=== PATIENT | female | born 2000 | race Caucasian/White ===

== ENCOUNTER 2023-01-08 07:53 | Emergency (ER) | payer MEDICAID ==
[~2023-01-08] VITALS: Ht 160 cm; Wt 63.5 kg
[2023-01-08 07:55] VITALS: BP 126/61; PULSE 101; RESP 20; TEMP 98.4; O2SAT 97
[2023-01-08 08:39] VITALS: BP 126/61; PULSE 101; RESP 20; TEMP 98.4; O2SAT 97
== END 2023-01-08 08:39 ==
LOC: MED 07:53
DX: T14.8XXA Other injury of unspecified body region, initial encounter (principal); Z02.89 Encounter for other administrative examinations; Z88.6 Allergy status to analgesic agent; V89.2XXA Person injured in unspecified motor-vehicle accident, traffic, initial encounter; Y93.89 Activity, other specified; Y92.410 Unspecified street and highway as the place of occurrence of the external cause; Y99.8 Other external cause status
CPT/HCPCS: 99283